=== PATIENT | female | born 1975 | race Caucasian/White ===

== ENCOUNTER 2020-03-07 11:11 | Outpatient (CLI) | payer OTHER, SELFPAY ==
--- NOTE | 2020-03-07 11:18 | MM_ITS ---
WS: [id number] BILATERAL SCREENING DIGITAL MAMMOGRAM WITH CAD HISTORY: SCREENING COMPARISON: 09/26/2018 and 09/20/2016 Bilateral CC and MLO views submitted. Computer aided detection analyzed. Breast composition: There are scattered areas of fibroglandular density. No suspicious masses, microc alcifications or architectural distortion. Asymmetries and calcifications are stable. MM/[id number] IMPRESSION: BI-RADS: 2-Benign FOLLOW UP: 1 Year Follow-up
== END 2020-03-07 11:12 | disposition home or self-care (01) ==
LOC: RADSHAW 11:16
PROVIDERS: Family Provider Nurse Practitioner; PCP Nurse Practitioner; Visit Provider Nurse Practitioner Family
DX: Z12.31 Encounter for screening mammogram for malignant neoplasm of breast (principal)
CPT/HCPCS: 77067

== ENCOUNTER → 2020-07-08 09:22 | Outpatient (BNVA) | payer OTHER, SELFPAY | PROVIDERS: Family Provider Nurse Practitioner; PCP Nurse Practitioner; Visit Provider Family Medicine Adult Medicine | DX: E11.9 Type 2 diabetes mellitus without complications (principal); E78.2 Mixed hyperlipidemia; I10 Essential (primary) hypertension | CPT/HCPCS: 80048; 80061; 82306; 82607; 83036; 85025 ==

== ENCOUNTER → 2021-01-20 12:02 | Outpatient (BNVA) | payer OTHER, SELFPAY | PROVIDERS: Family Provider Nurse Practitioner; PCP Family Medicine Adult Medicine; Visit Provider Family Medicine Adult Medicine | DX: E78.2 Mixed hyperlipidemia; I10 Essential (primary) hypertension; M54.5 Low back pain; E08.40 Diabetes mellitus due to underlying condition with diabetic neuropathy, unspecified; F41.9 Anxiety disorder, unspecified; D51.0 Vitamin B12 deficiency anemia due to intrinsic factor deficiency | CPT/HCPCS: 80053; 80061; 83036; 85025 ==

== ENCOUNTER → 2021-04-06 08:14 | Outpatient (BNVA) | payer OTHER, SELFPAY | PROVIDERS: Family Provider Nurse Practitioner; PCP Family Medicine Adult Medicine; Visit Provider Family Medicine Adult Medicine | DX: Z00.00 Encounter for general adult medical examination without abnormal findings (principal); D51.0 Vitamin B12 deficiency anemia due to intrinsic factor deficiency; E11.9 Type 2 diabetes mellitus without complications | CPT/HCPCS: 80061; 83036; 84443 ==

== ENCOUNTER 2021-04-25 11:00 | Outpatient (CLI) | payer OTHER, SELFPAY ==
--- NOTE | 2021-04-25 11:05 | MM_ITS ---
WS: [id number] BILATERAL SCREENING DIGITAL MAMMOGRAM WITH CAD HISTORY: SCREENING COMPARISON: 03/07/2020 and 09/26/2018 Bilateral CC and MLO views submitted. Computer aided detection analyzed. Breast composition: There are scattered areas of fibroglandular density. No suspicious masses, microc alcifications or architectural distortion. Benign calcifications RIGHT breast. MM/[id number] IMPRESSION: BI-RADS: 2-Benign FOLLOW UP: 1 Year Follow-up
== END 2021-04-25 11:01 | disposition home or self-care (01) ==
LOC: RADSHAW 11:04
PROVIDERS: Family Provider Nurse Practitioner; PCP Family Medicine Adult Medicine; Visit Provider Nurse Practitioner Family
DX: Z12.31 Encounter for screening mammogram for malignant neoplasm of breast (principal)
CPT/HCPCS: 77067

== ENCOUNTER 2021-08-24 15:21 | Emergency (ER) | payer OTHER, SELFPAY ==
[2021-08-24 16:47] VITALS: BP 126/87; PULSE 119; RESP 22; TEMP 37.4; O2SAT 91; BMI 24.0
--- NOTE | 2021-08-24 18:04 | XRR_ITS ---
PROCEDURE INFORMATION: Exam: XR Chest Exam date and time: 08/24/2021 6:04 PM Age: 46 years old Clinical indication: Shortness of breath; Patient HX: Covid+; Additional info: SOB TECHNIQUE: Imaging protocol: XR of the chest. Views: 1 view. COMPARISON: No relevant prior studies available. FINDINGS: Lungs: There is some patchy peripheral infiltrates in both lungs more on the right than on the left and some focal infiltrate or atelectasis at the left lung base. Pleural spaces: Unremarkable. No pleural effusion. No pneumothorax. Heart/Mediastinum: Heart is within normal limits of size. Bones/joints: Unremarkable. XR/XR chest 1V portable [id number] IMPRESSION: Mild pulmonary infiltrates. These may be consistent with the given clinical history of COVID-19 infection. Radiation Dose CTDIVOL = (mGy): DLP = (mGy-cm)
[2021-08-24 18:42] LABS: Hematocrit 48.6 % (37.0-47.0); Hemoglobin 16.8 g/dL (11.5-15.3); Mean Corpuscular HGB Conc 34.6 g/dL (30.0-36.0); Mean Corpuscular Hemoglobin 34.3 pg (28.0-34.0); Mean Corpuscular Volume 99.2 fl (81-99); Mean Platelet Volume 10.9 fL (7.4-10.4); Platelet Count 206 10^3/cmm (130-400); Red Cell Distribution Width 11.9 % (12.1-15.1); White Blood Count 7.9 10^3/uL (4.0-10.0)
[2021-08-24 18:46] LABS: D Dimer 0.58 ug/mIFEU (0-0.59)
[2021-08-24 19:00] LABS: Alanine Aminotransferase 22 U/L (0-33); Alkaline Phosphatase 109 IU/L (35-105); Anion Gap 25.4 (5-19); Aspartate Amino Transferase 34 U/L (0-32); Blood Urea Nitrogen 16 mg/dL (6-20); C Reactive Protein 202.1 mg/L (0.0-4.9); Carbon Dioxide 24 mmol/L (22-29); Chloride 86 mmol/L (98-107); Globulin 4.9 g/dL (1.3-4.6); Glomerular Filtration Rate 90.5 mL/min (90-130); Glucose 474 mg/dL (65-115); Osmolality Calculated 294 mOsm/kg (285-295); Potassium 4.4 mmol/L (3.5-5.1); Sodium 131 mmol/L (136-145); Total Bilirubin 0.3 mg/dL (0.15-1.2); Total Protein 8.9 g/dL (6.6-8.7)
[2021-08-24 19:01] LABS: Lactic Sepsis W/Reflex 2.5 mmol/L (0.5-2.2)
[2021-08-24 19:28] LABS: Slide Review Slide Review Perform
[2021-08-24 19:31] LABS: Absolute Neutrophil 7.4 10^3/cmm (1.4-6.5); Absolute Segmented Neutrophil 6.7 10/cmm (1.6-7.1); Band Neutrophils Absolute 0.7 10^3/cmm (0.0-1.2); Eosinophils 0 %; Lymphocytes 2 %; Lymphocytes Absolute 0.5 10^3/cmm (1.2-3.4); Platelet Estimate Normal (Normal); Segmented Neutrophils 85 %; Total Cells Counted 100 (0-100)
[2021-08-24 19:47] LABS: Calcium 10.2 mg/dL (8.5-10.5)
[2021-08-24 20:16] LABS: Reflex Lactate Order REFLEX LACTIC ORDERD
[2021-08-24 22:14] LABS: Lactic Acid level (Lactate) 2.7 mmol/L (0.5-2.2)
--- NOTE | 2021-08-24 22:34 | W.ED.GENADLT ---
HPI - General Adult General: Chief complaint: COVID symptoms Stated complaint: SOB, Chest Tight, Muscle Aches COV+? Time Seen by Provider: 08/24/21 21:43 History of Present Illness: HPI narrative: CC: Shortness of breath, fever and generalized weakness HPI: This is a [46] yo patient w/ hx of DM, THN presenting to the ED with malaise, generalized weakness, cough sputum production, and fever at home x [4]days. Covid positive 4 days ago. Since onset of symptoms, has had some shortness of breath and decreased PO intake. NO recent travel. Endorses no sick contacts around. +endorses nausea, denies vomiting or diarrhea. Denies chest pain, diaphoresis, other GI or complaints. Denies any pleuritic chest pain, recent surgery/immobilization/travel, or hematemesis or hx of VTE in the past. Onset: [4] days ago Duration: ongoing for the last [4] days Location: home Severity: moderate Review of Systems Narrative: Constitutional: +subjective fever, +generalized weakness HEENT: No vision changes CV: No chest pain, no palpitations PULM: +cough, +dyspnea. GI: No abdominal pain, no N/V/D. : No dysuria MSKEL: No muscle pain SKIN: No new rashes, no lesions. NEURO: No headache, no focal weakness. HEME: No visible bruises PSYCH: Normal mood PFSH ED PFSH: Medical History (Updated 08/25/21 @ 02:52 by Sarah Nieto MD) Allergic rhinitis due to allergen Back pain at L4-L5 level Bursitis and tendinitis of shoulder region Cholecystectomy planned COVID-19 Positive COVID test: 08/19/2021. Diabetes mellitus Diabetic neuropathy associated with diabetes mellitus due to underlying condition Elevated MCV Elevated triglycerides with high cholesterol Hypertension Pernicious anemia Wellness examination Family History Mother Diabetes CAD (coronary artery disease) Father Diabetes Cancer Brother Diabetes Epilepsy Denies family history of Epiloia Social History Smoking and tobacco status: former smoker Alcohol intake: current Marital status: Legally Female Reproductive History: Date of last menstrual period: 10/06/19 Para: 3 Physical Exam Narrative: EXAM NARRATIVE: Head: Atraumatic Eyes: PERRL, conjunctiva without injection ENT: Mucous membrane moist NECK: Supple without lymphadenopathy LUNGS: Coarse lung sounds, tachypnea, no crackles/wheezes/rhonchi on exam CV: RRR ABDOMEN: Soft, nontender EXTREMITY: Normal ROM SKIN: No rash or erythema NEURO: Awake and alert. No focal motor deficits. PSYCH: Normal mood and affect. Course Vital Signs: Vital signs: Vital Signs Temperature 98.6 F 08/25/21 00:24 Pulse Rate 80 08/25/21 02:21 Respiratory Rate 22 H 08/25/21 02:21 Blood Pressure 113/88 08/25/21 02:21 Pulse Oximetry 93 08/25/21 02:21 MDM - General Adult MDM Narrative: Medical decision making narrative: [46]yo patient presenting to the ED with shortness of breath, cough, and malaise concerning for pneumonia with findings of fever, decreased/junky breath sounds, and tachypnea. Defer lab work at this time given that the patient is well appearing with stable vital signs and without recent hospitalization or care facility stay. Given History, Exam, and Workup presentation most consistent with pneumonia.Presentation not consistent with PE, COPD exacerbation, Pneumothorax, TB, Atypical ACS, Esophageal Rupture, Toxic Exposure, Foreign Body Airway Obstruction. Intervention: Tylenol 1gram, PO challenge, serial reassessment, decadron 6mg [2:30pm] Afebrile currently. Patient continues to be in no respiratory distress with O2 sats between 92-95% on RA. Offered BAM but patient declined. Patient received decadron in the ED, and offered admission. However, patient declined to come to be admitted citing desire to go home with supplemental oxygen. Our respiratory therapist assessed patient who will be going home with 2L of NC. I have discussed the risks of leaving today which including possible respiratory distress and possibly . Patient agrees with plan still to go home. She verbalizes understandings of all the risks and elects for close follow up with PCP in 24-48hrs. I have discussed the workup today with patient who agrees to go home with serial observation. I have give patient strict return precautions for any worsening symptoms including worsening dyspnea, exertional dyspnea, cough, chest pain, dehydration, or any other concerns that patient may have. I have given a portable pulse ox and given strict return precautions for any new respiratory distress, O2 sats < 92%, or any other concerns. Disposition: Discharge. Patient is given strict follow up with PCP in 24-48 hrs for reassessment. Patient agrees with everything discussed today. Lab Data: Labs: Lab Results 08/24/21 08/24/21 08/24/21 18:05 18:05 18:05 WBC 7.9 10^3/uL 10^3/ uL (4.0-10.0) RBC 4.90 10^6/uL 10^6 /uL (4.1-5.3) Hgb 16.8 g/dL H g/dL (11.5-15.3) Hct 48.6 % H % (37.0-47.0) MCV 99.2 fl H fl (81-99) MCH 34.3 pg H pg (28.0-34.0) MCHC 34.6 g/dL g/dL (30.0-36.0) RDW 11.9 % L % (12.1-15.1) Plt Count 206 10^3/cmm 10^3 /cmm (130-400) MPV 10.9 fL H fL (7.4-10.4) Lymph % (Auto) Not Reportable [place] % (Auto) Not Reportable Lymph # (Auto) Not Reportable [place] # (Auto) Not Reportable Total Counted 100 (0-100) Atypical Lymphs % 4.0 % % (0-5) Absolute Neutrophi ls 7.4 10^3/cmm H 10 ^3/cmm (1.4-6.5) Segmented Neutroph ils 85 % % Abs Segm Neuts (Ma n) 6.7 10/cmm 10/cmm (1.6-7.1) Band Neutrophils 9.0 % % Abs Band Neuts (Ma n) 0.7 10^3/cmm 10^3 /cmm (0.0-1.2) Absolute Lymphocyt es 0.5 10^3/cmm L 10 ^3/cmm (1.2-3.4) Lymphocytes (Manua l) 2 % % Monocytes (Manual) 0.0 % % Absolute Monocytes 0.0 10^3/cmm L 10 ^3/cmm (0.1-0.6) Eosinophils (Manua l) 0 % % Absolute Eosinophi ls 0.0 10^3/cmm 10^3 /cmm (0.0-0.7) Basophils (Manual) 0.0 % % Absolute Basophils 0.0 10^3/cmm 10^3 /cmm (0.0-0.2) Platelet Estimate Normal (Normal) D-Dimer 0.58 ug/mIFEU ug/ mIFEU (0-0.59) Sodium 131 mmol/L L mmol /L (136-145) Potassium 4.4 mmol/L mmol/L (3.5-5.1) Chloride 86 mmol/L L mmol/ L (98-107) Carbon Dioxide 24 mmol/L mmol/L (22-29) Anion Gap 25.4 H (5-19) BUN 16 mg/dL mg/dL (6-20) Creatinine 0.7 mg/dL mg/dL (0.5-0.9) GFR Calculation 90.5 mL/min mL/mi n (90-130) Glucose 474 mg/dL H mg/dL (65-115) Calculated Osmolal ity 294 mOsm/kg mOsm/ kg (285-295) Lactic Acid Lactic Acid (Sepsi s) Calcium 10.2 mg/dL mg/dL (8.5-10.5) Total Bilirubin 0.3 mg/dL mg/dL (0.15-1.2) AST 34 U/L H U/L (0-32) ALT 22 U/L U/L (0-33) Alkaline Phosphata se 109 IU/L H IU/L (35-105) C-Reactive Protein 202.1 mg/L H mg/L (0.0-4.9) Total Protein 8.9 g/dL H g/dL (6.6-8.7) Albumin 4.0 g/dL g/dL (3.5-5.2) Globulin 4.9 g/dL H g/dL (1.3-4.6) 08/24/21 08/24/21 18:05 21:45 WBC RBC Hgb Hct MCV MCH MCHC RDW Plt Count MPV Lymph % (Auto) [place] % (Auto) Lymph # (Auto) [place] # (Auto) Total Counted Atypical Lymphs % Absolute Neutrophi ls Segmented Neutroph ils Abs Segm Neuts (Ma n) Band Neutrophils Abs Band Neuts (Ma n) Absolute Lymphocyt es Lymphocytes (Manua l) Monocytes (Manual) Absolute Monocytes Eosinophils (Manua l) Absolute Eosinophi ls Basophils (Manual) Absolute Basophils Platelet Estimate D-Dimer Sodium Potassium Chloride Carbon Dioxide Anion Gap BUN Creatinine GFR Calculation Glucose Calculated Osmolal ity Lactic Acid 2.5 mmol/L H mmol /L (0.5-2.2) Lactic Acid (Sepsi s) 2.7 mmol/L H mmol /L (0.5-2.2) Calcium Total Bilirubin AST ALT Alkaline Phosphata se C-Reactive Protein Total Protein Albumin Globulin Imaging Data^: Other Imaging: Radiologist's impression: [facility] [address] [place], [place] [address]BKym ReportSigned Patient: Radha Aguillon #: [id number]: 1975Acct#:[id number]/Sex: 46 / FADM Date: 08/24/21Loc: ERRoom/Bed:Attending Dr: Ordering Provider/Ordering MD: Heriberto Dupree DO Date of Service: 08/24/21 Procedure(s): XR chest 1V portable [id number] Accession Number(s): [id number] Report Number: [id number] PROCEDURE INFORMATION: Exam: XR Chest Exam date and time: 08/24/2021 6:04 PM Age: 46 years old Clinical indication: Shortness of breath; Patient HX: Covid+; Additional info: SOB TECHNIQUE: Imaging protocol: XR of the chest. Views: 1 view. COMPARISON: No relevant prior studies available. FINDINGS: Lungs: There is some patchy peripheral infiltrates in both lungs more on the right than on the left and some focal infiltrate or atelectasis at the left lung base. Pleural spaces: Unremarkable. No pleural effusion. No pneumothorax. Heart/Mediastinum: Heart is within normal limits of size. Bones/joints: Unremarkable. XR/XR chest 1V portable [id number] IMPRESSION: Mild pulmonary infiltrates. These may be consistent with the given clinical history of COVID-19 infection. Radiation Dose CTDIVOL = (mGy): DLP = (mGy-cm) Dictated By:Nikki Tim By:Nikki Tim Date/Time:08/24/21 1923DD/ 1804 Discharge Plan Discharge Patient Disposition: Home Clinical Impression: COVID, Cough, Hypoxemia Condition: Stable Prescriptions: New acetaminophen 500 mg tablet 500 mg PO Q6H PRN (Reason: pain) 5 Days Qty: 20 RF: 0 Zofran 4 mg tablet 4 mg PO TID PRN (Reason: nausea and vomiting) 4 Days Qty: 12 RF: 0 No Action desloratadine 5 mg tablet,disintegrating 5 mg PO DAILY Qty: 30 RF: 3 prednisone 20 mg tablet 60 mg PO DAILY 7 Days Qty: 21 RF: 0 Eliquis 5 mg tablet 5 mg PO BID Qty: 60 RF: 1 levonorgestrel-ethinyl estrad [Jolessa] 0.15 mg-30 mcg (91) tablets,dose pack,3 month 1 tab PO ONCE RF: 0 acetaminophen [Tylenol Extra Strength] 500 mg tablet 500 mg PO .as needed PRNRF: 0 hydroxyzine HCl 25 mg tablet 25 mg PO TID PRN (Reason: anxiety) Qty: 90 RF: 3 clonidine HCl 0.1 mg tablet 0.1 mg PO .prn Qty: 30 RF: 0 cholecalciferol (vitamin D3) 1,250 mcg (50,000 unit) capsule 50,000 unit PO .weekly 90 Days Qty: 12 RF: 2 baclofen 10 mg tablet 10 mg PO BID 30 Days Qty: 60 RF: 5 azelastine-fluticasone 137-50 mcg/spray spray,non-aerosol 1 spray intranasal BID Qty: 23 RF: 3 atorvastatin 10 mg tablet 10 mg PO DAILY Qty: 30 RF: 5 amlodipine 2.5 mg tablet 2.5 mg PO DAILY 30 Days Qty: 30 RF: 5 cyanocobalamin (vitamin B-12) 1,000 mcg/mL solution 1,000 mcg IM .MONTHLY Qty: 1 RF: 3 gabapentin 600 mg tablet 600 mg PO QID 30 Days Qty: 120 RF: 5 glyburide 5 mg tablet 5 mg PO BID Qty: 60 RF: 5 metformin 500 mg tablet extended release 24 hr 1,000 mg PO BID 30 Days Qty: 120 RF: 5 (DME) syringe with needle 3 mL 21 gauge x 1 syringe See Rx Instructions .Route Qty: 1 RF: 5 amitriptyline 25 mg tablet 100 mg PO .HS 90 Days Qty: 360 RF: 1 hydrochlorothiazide 25 mg tablet See Rx Instructions .ROUTE .COMPLEX Qty: 90 RF: 0 fluconazole [Diflucan] 150 mg tablet 150 mg PO Q3D Qty: 2 RF: 1 Discharge Orders: Discharge ED (Routine); Ordered 08/25/21 Ordered By: Sarah Nieto Other Ambulatory Orders: DME: Oxygen (Order) Location: None Selected Ordered By: Sarah Nieto Referrals: Ralph Pineda MD [Primary Care Provider] - Discharge Diet: Advance as tolerated Discharge Activity: Resume usual activity Patient Instructions: COVID-19 (Coronavirus Disease 2019) (ED), Opioid Safety Activity Restrictions/Additional Instructions: Please come back to the emergency room if your oxygen saturation is less than 92%. Back to the emergency room having new or concerning complaints. Come back to the emergency room for nausea/vomiting, difficulty breathing, or any new concerning complaints. Coding Level of Care Code ED Towboat Operator for Yovany Cerna
[2021-08-24 23:06] VITALS: O2SAT 91
[2021-08-24] MEDS: acetaminophen 500 mg Tablet 1000 MG PO (23:15)
[2021-08-24] MEDS: sodium chloride 0.9% 1,000 ML 999 ML IV (23:20)
--- NOTE | 2021-08-24 23:33 | PC.NURSE ---
pt refused monoclonial tx stating she misunderstood the Dr's plan of care. Dr notified
[2021-08-25 00:24] VITALS: BP 119/87; PULSE 102; RESP 18; TEMP 37; O2SAT 91
[2021-08-25 00:28] VITALS: BP 119/87; RESP 24; O2SAT 91
[2021-08-25 01:27] VITALS: BP 126/84; PULSE 98; RESP 18; O2SAT 91
[2021-08-25 02:21] VITALS: BP 113/88; PULSE 80; RESP 22; O2SAT 93
[2021-08-25] MEDS: dexamethasone 10 mg/mL INJ 6 MG IVP (02:45)
[2021-08-25 04:08] VITALS: BP 120/91; PULSE 101; RESP 18; TEMP 37.1; O2SAT 92
[2021-08-25 19:43] LABS: Glucose Point of Care 425 mg/dL (70-110)
== END 2021-08-25 04:16 | disposition home or self-care (01) ==
PROVIDERS: Family Medicine; Emergency Provider Emergency Medicine; PCP Family Medicine Adult Medicine
DX: U07.1 COVID-19 (principal); R09.02 Hypoxemia; Z79.01 Long term (current) use of anticoagulants; Z79.84 Long term (current) use of oral hypoglycemic drugs; E11.40 Type 2 diabetes mellitus with diabetic neuropathy, unspecified; I10 Essential (primary) hypertension; Z87.891 Personal history of nicotine dependence
CPT/HCPCS: 36415; 36416; 71045; 80053; 82962; 83605; 85007; 85025; 85378; 86140; 96361; 96374; 99284; J1100; J7030

== ENCOUNTER → 2021-09-06 12:21 | Outpatient (BNVA) | payer OTHER, SELFPAY | PROVIDERS: PCP Family Medicine Adult Medicine; Visit Provider Family Medicine | DX: E11.9 Type 2 diabetes mellitus without complications (principal); R06.02 Shortness of breath | CPT/HCPCS: 36416; 71046; 82962 ==

== ENCOUNTER → 2022-01-12 08:20 | Outpatient (BNVA) | payer OTHER, SELFPAY | PROVIDERS: PCP Family Medicine Adult Medicine; Visit Provider Family Medicine Adult Medicine | DX: E78.2 Mixed hyperlipidemia (principal); E11.65 Type 2 diabetes mellitus with hyperglycemia; I10 Essential (primary) hypertension; D51.0 Vitamin B12 deficiency anemia due to intrinsic factor deficiency | CPT/HCPCS: 80053; 80061; 83036; 85025 ==

== ENCOUNTER → 2022-05-18 09:38 | Outpatient (BNVA) | payer OTHER, SELFPAY | PROVIDERS: PCP Family Medicine Adult Medicine; Visit Provider Family Medicine Adult Medicine | DX: E11.65 Type 2 diabetes mellitus with hyperglycemia (principal) | CPT/HCPCS: 83036 ==

== ENCOUNTER 2022-06-08 08:33 | Outpatient (CLI) | payer OTHER, SELFPAY ==
--- NOTE | 2022-06-08 08:41 | MM_ITS ---
WS: [id number] VIEWS: MLO and CC views both breasts. 3D digital tomosynthesis is also included in this exam. Comparison made with prior exam of 09/20/2016, 09/26/2018, 04/25/2021.. Findings: There was no sign of mass, architectural distortion or suspicious calcification in either breast. Sc attered fibroglandular densities MM/[place] [id number] Impression: BI-RADS: 2-Benign FOLLOW-UP: 1 Year Follow-up This mammogram was also analyzed by the Computer Aided Detection System R2 Imag e Composing Room Machinist.
== END 2022-06-08 08:34 | disposition home or self-care (01) ==
PROVIDERS: PCP Family Medicine Adult Medicine; Visit Provider Family Medicine
DX: Z12.31 Encounter for screening mammogram for malignant neoplasm of breast (principal)
CPT/HCPCS: 77063; 77067

== ENCOUNTER → 2022-08-17 11:03 | Outpatient (BNVA) | payer OTHER, SELFPAY | PROVIDERS: PCP Family Medicine Adult Medicine; Visit Provider Family Medicine Adult Medicine | DX: E11.65 Type 2 diabetes mellitus with hyperglycemia (principal); J30.9 Allergic rhinitis, unspecified; E11.9 Type 2 diabetes mellitus without complications | CPT/HCPCS: 83036 ==

== ENCOUNTER → 2022-11-30 10:30 | Outpatient (BNVA) | payer OTHER, SELFPAY | PROVIDERS: PCP Family Medicine Adult Medicine; Visit Provider Family Medicine Adult Medicine | DX: E11.69 Type 2 diabetes mellitus with other specified complication (principal); E78.5 Hyperlipidemia, unspecified; I10 Essential (primary) hypertension; E11.9 Type 2 diabetes mellitus without complications; D51.0 Vitamin B12 deficiency anemia due to intrinsic factor deficiency; M75.50 Bursitis of unspecified shoulder; E08.40 Diabetes mellitus due to underlying condition with diabetic neuropathy, unspecified; M25.512 Pain in left shoulder; M75.90 Shoulder lesion, unspecified, unspecified shoulder | CPT/HCPCS: 73030; 80053; 80061; 83036; 85025 ==

== ENCOUNTER 2023-11-04 11:43 | Outpatient (CLI) | payer OTHER, SELFPAY ==
--- NOTE | 2023-11-04 11:51 | MM_ITS ---
WS: [id number] BILATERAL 3D TOMOSYNTHESIS DIGITAL SCREENING MAMMOGRAPHY WITH CAD CLINICAL INFORMATION: SCREENING HISTORY: Screening mammogram. No current complaints. COMPARISON: 2021 TECHNIQUE: Bilateral CC and MLO views. FINDINGS: Scattered fibroglandular densities bilaterally. No suspicious focal mass, asymmetry, calcifications, or architectural distortion. No evidence of malignancy. Punctate and lucent centered calcifications. IMPRESSION: MM/[place] [id number] BI-RADS: 2-Benign FOLLOW UP: 1 Year Follow-up Recommend return to annual screening mammography.
== END 2023-11-04 11:44 | disposition home or self-care (01) ==
PROVIDERS: PCP Advanced Practice Midwife; Visit Provider Advanced Practice Midwife
DX: Z12.31 Encounter for screening mammogram for malignant neoplasm of breast (principal); R92.323 Mammographic fibroglandular density, bilateral breasts
CPT/HCPCS: 77063; 77067

== ENCOUNTER → 2023-11-20 12:02 | Outpatient (BNVA) | payer OTHER, SELFPAY | PROVIDERS: PCP Advanced Practice Midwife; Visit Provider Family Medicine Adult Medicine | DX: I10 Essential (primary) hypertension (principal); E11.69 Type 2 diabetes mellitus with other specified complication; E78.5 Hyperlipidemia, unspecified | CPT/HCPCS: 80053; 83036; 83735; 84443 ==

== ENCOUNTER → 2023-11-21 08:27 | Outpatient (BNVA) | payer OTHER, SELFPAY | PROVIDERS: PCP Advanced Practice Midwife; Visit Provider Family Medicine Adult Medicine | DX: I10 Essential (primary) hypertension (principal); E11.69 Type 2 diabetes mellitus with other specified complication; E78.5 Hyperlipidemia, unspecified | CPT/HCPCS: 80061 ==

== ENCOUNTER → 2024-05-07 09:15 | Outpatient (BNVA) | payer OTHER, SELFPAY | PROVIDERS: PCP Family Medicine Adult Medicine; Visit Provider Family Medicine Adult Medicine | DX: E11.65 Type 2 diabetes mellitus with hyperglycemia (principal); E11.69 Type 2 diabetes mellitus with other specified complication; E78.5 Hyperlipidemia, unspecified; I15.0 Renovascular hypertension; M25.562 Pain in left knee; M54.16 Radiculopathy, lumbar region; M54.31 Sciatica, right side; M54.32 Sciatica, left side; R79.82 Elevated C-reactive protein (CRP) | CPT/HCPCS: 83036; 85651; 86038; 86140; 86431 ==

== ENCOUNTER → 2024-05-21 15:56 | Outpatient (BNVA) | payer OTHER, SELFPAY | PROVIDERS: PCP Family Medicine Adult Medicine; Visit Provider Orthopaedic Surgery | DX: M54.9 Dorsalgia, unspecified (principal) | CPT/HCPCS: 72110 ==